=== PATIENT | male | born 1960 | race Caucasian/White ===

== ENCOUNTER 2023-02-05 07:02 | Observation (INO) ==
--- NOTE | 2022-12-07 13:29 | History & Physical Report ---
Date of Service December 07, 2022 Assessment & Plan (1) Osteoarthritis of left hip: We will proceed with a left total hip arthroplasty. Postoperatively he will be started on aspirin for DVT prophylaxis. We will keep him overnight for postop medical management and discharge him to home the following day. History of Present Illness Chief Complaint: Osteoarthritis of the left hip. Primary Care Provider: GILMAR Pj Nieto is a 62-year-old inmate at [facility]. He has been having over a year history of increasing pain in his left hip with decreased range of motion. It is at the point now where he has a very difficult time getting up from a seated position. Difficult time walking without severe pain as well. He has tried conservative treatment up to this point including cortisone injections, which provide him minimal symptomatic relief. Symptoms start in the groin and radiate into his buttock area. X-rays and clinical examination been diagnostic for advanced osteoarthritis of the left hip. After failing conservative treatment, he has elected proceed with a left total hip arthroplasty.. Allergies Allergy/AdvReac Type Severity Reaction Status Date / Time enalaprilat [From Vasotec] Allergy Unknown Verified 12/01/22 10:45 milk Allergy Unknown Verified 12/01/22 10:44 tomato Allergy Unknown Verified 12/01/22 10:44 Home Medications Medication Instructions Recorded Confirmed Type aspirin 81 mg tablet,delayed 81 mg PO DAILY 12/01/22 12/01/22 History release cyproheptadine 4 mg tablet 4 mg PO BID 12/01/22 12/01/22 History famotidine 20 mg tablet 20 mg PO BID 12/01/22 12/01/22 History meloxicam 15 mg tablet 15 mg PO DAILY 12/01/22 12/01/22 History minoxidil 10 mg tablet 10 mg PO TID 12/01/22 12/01/22 History Past Med/Surg History Medical History Environmental allergies GERD (gastroesophageal reflux disease) Hypertension Osteoarthritis of left hip Surgical History No history of previous surgery none reported on [facility] record Social History Smoking Status: Unknown if ever smoked Tobacco Cessation Education Requested by Patient: No Preferred Language: Japanese 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 Physical Exam On physical examination of left hip, he has decreased range of motion. He has pain with forced internal and external rotation. Constitutional WD/WN, vitals as above Eyes PERRL, conjunctivae normal, anicteric sclerae ENMT external ear and nose normal, oropharynx normal Neck trachea midline, no thyromegaly Respiratory normal respiratory effort, lungs clear to auscultation Cardiovascular RRR, no murmur, no edema Gastrointestinal (Abdomen) normal bowel sounds, soft, nontender, no hepatosplenomegaly Skin no rashes, warm and dry Psychiatric A+Ox3, euthymic affect Results & Data Results & Data Laboratory Results . Diagnostic Findings X-rays of the left hip show advanced osteoarthritis with joint space narrowing, osteophyte formation, and [id number] to collation.. PG Care Time/CCT Total # of Minutes Spent Total Time Spent with Patient: Total time spent is greater than 50% in coordination of care (as documented) at patient's floor/unit and/or counseling patient: Coding Level of Care Code None Diagnoses Osteoarthritis of left hip M16.12
--- NOTE | 2023-01-29 15:17 | Anesthesiology Consultation ---
Date of Service January 29, 2023 Assessment & Plan (1) Encounter for pre-operative examination: Chart Review Chart Review: Acceptable Risk for Surgery (pending surgeon ordered preop testing/labs ) and Patient NOT seen in Pre Admission Testing - Awaiting preop testing/labs - Patient will need preop EKG (unconfirmed) reviewed along with functional status and if patient is having any cardiac symptoms- final determination to proceed with surgery will be made at that time Upon review of chart and discussion with Dr. Fletcher- patient is an acceptable candidate for [facility] from anesthesia perspective. Pending patient is motivated, has good support and surgeon's office completes [facility] preop requirements- patient may proceed with outpatient [facility]. Per OR booking comment- [facility] aware and okay with patient coming back to facility same day -COVID screening: Per PAT nursing assessment on 01/25/23. Pt resides at [facility]. No known COVID-19 positive contacts or current COVID-19 related symptoms. Travel screen negative. Unknown if patient if vaccinated for Covid. Preop Covid testing scheduled 02/02/23= awaiting results History Surgery Operation Date: 02/05/23 11:10 Proposed Procedures p Left Total Hip Arthroplasty Anterior - Anthony Bourne, Height/Weight Height: 5 ft 10 in Weight: 101.605 kg Allergies Allergy/AdvReac Type Severity Reaction Status Date / Time enalaprilat [From Vasotec] Allergy Unknown Verified 01/25/23 13:21 milk Allergy Unknown Verified 01/25/23 13:21 tomato Allergy Unknown Verified 01/25/23 13:21 Medications Home Medications Medication Instructions Recorded Confirmed Last Taken aspirin 81 mg tablet,delayed 81 mg PO DAILY 12/01/22 01/25/23 Unknown release famotidine 20 mg tablet 20 mg PO BID 12/01/22 01/25/23 Unknown meloxicam 15 mg tablet 15 mg PO DAILY 12/01/22 01/25/23 Unknown minoxidil 10 mg tablet 10 mg PO TID 12/01/22 01/25/23 Unknown Past Medical History Medical History Atopic dermatitis Chronic low back pain Chronic sinusitis Environmental allergies GERD (gastroesophageal reflux disease) Hypertension Inmate in correction[facility] facility [facility] Osteoarthritis of left hip Past Surgical History Surgical History No history of previous surgery none reported on [facility] record Social History Smoking Status: Unknown if ever smoked Testing Electrocardiogram Date: 10/06/22 Findings: + NSR @ (76bpm ) Possible left atrial enlargement RBBB T wave abnormality, consider inferior ischemia unconfirmed (Discussed with Dr. Fletcher- patient in severe pain per ortho note. Patient resides as inmate- functional status unknown- will be evaluated DOS along with evaluation of cardiac symptoms- can proceed as scheduled at this time but will be reassessed DOS prior to final decision to proceed with surgery; cardiac risk factors include HTN; surgeon's office was informed) Chest X-Ray Date: 09/12/22 Findings: + NAD
--- NOTE | 2023-02-01 17:21 | History & Physical Report ---
Date of Service February 01, 2023 Assessment & Plan (1) Osteoarthritis of left hip: We will proceed with a left anterior total of arthroplasty. Postoperatively he will be kept overnight in the hospital for postop medical management. He will return to custodial in [place] upon discharge. History of Present Illness Chief Complaint: Osteoarthritis of the left hip. Primary Care Provider: GILMAR Nieto is a 62-year-old inmate at [facility]. He has been having over a year history of increasing pain in his left hip with decreased range of motion. It is at the point now where he has a very difficult time getting up from a seated position. Difficult time walking without severe pain as well. He has tried conservative treatment up to this point including cortisone injections, which provide him minimal symptomatic relief. Symptoms start in the groin and radiate into his buttock area. X-rays show advanced osteoarthritis of the left hip. After failing conservative treatment, he has elected proceed with a left anterior total hip arthroplasty.. Allergies Allergy/AdvReac Type Severity Reaction Status Date / Time enalaprilat [From Vasotec] Allergy Unknown Verified 01/25/23 13:21 milk Allergy Unknown Verified 01/25/23 13:21 tomato Allergy Unknown Verified 01/25/23 13:21 Home Medications Medication Instructions Recorded Confirmed Type aspirin 81 mg tablet,delayed 81 mg PO DAILY 12/01/22 01/25/23 History release famotidine 20 mg tablet 20 mg PO BID 12/01/22 01/25/23 History meloxicam 15 mg tablet 15 mg PO DAILY 12/01/22 01/25/23 History minoxidil 10 mg tablet 10 mg PO TID 12/01/22 01/25/23 History Past Med/Surg History Medical History Atopic dermatitis Chronic low back pain Chronic sinusitis Environmental allergies GERD (gastroesophageal reflux disease) Hypertension Inmate in correctional facility GILMAR [place] Osteoarthritis of left hip Surgical History No history of previous surgery none reported on [facility] record Social History Smoking Status: Unknown if ever smoked Tobacco Cessation Education Requested by Patient: No Preferred Language: Cuban 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 Physical Exam On physical examination of the left hip, he has decreased range of motion. He has pain with forced internal and external rotation.. Constitutional WD/WN, vitals as above Eyes PERRL, conjunctivae normal, anicteric sclerae ENMT external ear and nose normal, oropharynx normal Neck trachea midline, no thyromegaly Respiratory normal respiratory effort, lungs clear to auscultation Cardiovascular RRR, no murmur, no edema Gastrointestinal (Abdomen) normal bowel sounds, soft, nontender, no hepatosplenomegaly Skin no rashes, warm and dry Psychiatric A+Ox3, euthymic affect Results & Data Results & Data Laboratory Results . Diagnostic Findings X-rays of the left hip show advanced osteoarthritis with joint space narrowing, osteophyte formation, and [id number] articulation PG Care Time/CCT Total # of Minutes Spent Total Time Spent with Patient: Total time spent is greater than 50% in coordination of care (as documented) at patient's floor/unit and/or counseling patient: Coding Level of Care Code None Diagnoses Osteoarthritis of left hip M16.12
[~2023-02-05 07:02] MED LIST: ACETAMINOPHEN 500 MG TAB PO SCH; FAMOTIDINE 20 MG TAB PO SCH; GABAPENTIN 300 MG CAP PO SCH; LR 500ML BOLUS, THEN 15ML/HR IV SCH; LR 60ML/HR IV SCH; ORTHO JOINT MIX INFIL SCH; ROPIVACAINE 0.5% 5 MG/ML 30 ML VIAL ONE; TRANEXAMIC ACID 1,000 MG **IV Intra-op IV SCH; TRANEXAMIC ACID 1,000 MG **IV Pre-op IV SCH; ceFAZolin 2000MG 2,000 MG/15 ML SYR IV SCH; dexAMETHasone 4 MG TAB PO SCH
[2023-02-05] MEDS ORDERED: MEPIVACAINE HCL 1.5% 30 ML VIAL ONE (07:09)
--- NOTE | 2023-02-05 08:46 | History & Physical Bridge Note ---
Date of Service February 05, 2023 History & Physical Bridge Note I have examined the patient, reviewed the History & Physical and in the interval since the performance of the History & Physical I have noted the following changes of clinical significance: no changes noted
[2023-02-05] MEDS ORDERED: BUPIVACAINE 0.5 % 5 MG/1 ML PF 10ML VIAL ONE (09:06)
[2023-02-05] MEDS ORDERED: ORTHO JOINT ANESTHETIC ONE (09:11)
[2023-02-05] MEDS ORDERED: LIDOCAINE 2% 2 ML VIAL/AMP(20MG/ML) INFIL ONE (09:18)
[2023-02-05] MEDS ORDERED: PROPOFOL IV EMULSION 10 MG/ML 20 ML VIAL IV ONE (09:18)
[2023-02-05] MEDS ORDERED: fentaNYL citrate PF 100 MCG/2 ML VIAL ONE (09:19)
[2023-02-05] MEDS ORDERED: MIDAZOLAM HCL 1 MG/ML 2ML VIAL ONE (09:19)
[2023-02-05] MEDS ORDERED: ATROPINE SULFATE 0.1 MG/ML 10ML SYR IV PRN (09:34)
[2023-02-05] MEDS ORDERED: fentaNYL citrate PF 100 MCG/2 ML VIAL IV PRN (09:34)
[2023-02-05] MEDS ORDERED: ePHEDrine sulfate 50 MG/ML AMP IV PRN (09:34)
[2023-02-05] MEDS ORDERED: ONDANSETRON INJ 2 MG/ML 2 ML VIAL IV PRN ×2 (09:34→12:56)
--- NOTE | 2023-02-05 11:12 | Operative Report ---
PG Post Operative Report Pre & Post Diagnosis Operation Date: 02/05/23 09:10 Pre-Op Diagnosis: Osteoarthritis left hip Post-Op Diagnosis: Osteoarthritis left hip I identified the patient and participated in the time-out.: Yes Procedure Operation Date: 02/05/23 09:10 Actual Procedures p Left Anterior Total Hip Arthroplasty (Left) - Anthony Bourne DO Surgeon Anthony Bourne DO Car Repairer Helper Anthony Grimm PA-C Estimated Blood Loss 200 Findings Consistent with Post-Op Diagnosis Specimens Left femoral head Description of Procedure Implants used I used a ZimmerBiomet total hip arthroplasty system with a size 4 high offset Avenir Complete stem, a 52 mm G7 cup with a 25mm screw, an E1 polyethylene liner, a 36 mm ceramic head with a +7 neck. Gerson arrived at the hospital for the above procedure. He was seen in the preoperative holding area and the operative extremity was identified and signed. He was given a spinal anesthetic, a preoperative antibiotic, and TXA. He was then taken back to the operating room and laid on the table in the supine position. He was given basic sedation. The operative leg was secured to a Puristst leg positioner. The hip was then prepped and draped in sterile fashion. A timeout was done and the patient and the operative extremity was properly identified. An anterior approach was used. Dissection was taken down through the fascia and the tensor muscle belly was retracted laterally and the rectus was retracted medially. The circumflex vessels were identified and ligated. The capsule was then incised and tagged for later repair. The femoral neck was then cut and the femoral head was removed. The acetabulum was exposed. Time was spent doing a complete circumferential labral release. Sequential reaming of the acetabulum up to a size 51 reamer was done. Final reamings were done under fluoroscopy to ensure appropriate version. A Biomet 52 mm G7 cup was then impacted into place. A single 25 mm screw was placed. The E1 polyethylene liner was then snapped into place. Surrounding soft tissues were then injected with 100 cc of an orthopedic pain control cocktail. The proximal femur was then exposed. Sequential broaching up to a size 4 broach was done. Off that broach a size 36 head with a +7 neck was trialed. The hip was reduced and fluoroscopic images showed anatomic alignment of the implants in acceptable length. The broach was removed. The final size 4 high offset Avenir Complete stem was then impacted into place. A ceramic 36 mm head with a +7 neck was then impacted onto the stem and the hip was reduced. Final fluoroscopic images showed anatomic alignment of the hip. The capsule was then closed with #1 Vicryl suture. A dilute betadyne lavage was then done for 3 minutes. The joint was then irrigated with normal saline solution. The fascia was closed with #1 PDS suture. Skin was closed with 2-0 Vicryl, vita, and a Silverlon dressi ng. He was then transferred to a hospital bed and taken to the post anesthesia care unit in stable condition. He tolerated the procedure well. Anthony Grimm PA-C, was present for the entire procedure. He was critical for patient positioning, prepping, draping, retraction exposure, wound closure and application of sterile dressing. I attest to the content of the Intraoperative Record and any orders documented therein. Any exceptions are noted below.
[2023-02-05] MEDS ORDERED: ONDANSETRON INJ 2 MG/ML 2 ML VIAL ONE (11:26)
--- NOTE | 2023-02-05 11:36 | Fluoroscopy Report ---
FL hip LT 1V CLINICAL HISTORY: Left anterior hip replacement. COMPARISON STUDY: None. FLUOROSCOPY TIME: 19 seconds FLUOROSCOPY IMAGES: 1 Ka,r: 2.4 mGy FINDINGS: There is a left total hip arthroplasty. The hardware appears intact. No fracture or disloca tion. IMPRESSION: Fluoroscopic assistance as above. ACT 112: Negative or not required by law. Electronically signed by: Mack Gordon M.D. 02/05/2023 11:34 AM
--- NOTE | 2023-02-05 12:02 | Anesthesiology Progress Note ---
Date of Service February 05, 2023 Anesthesia Post Procedure Vital Signs Vital Signs: Temp Pulse Pulse Resp BP BP Pulse Ox 02/05/23 11:45 82 18 160/70 H 95 02/05/23 11:35 36.3 C L 70 20 109/63 96 02/05/23 07:29 37 C 79 20 176/83 H 99 O2 Del Method O2 Flow Rate 02/05/23 11:45 Room Air 02/05/23 11:35 Oxymask 6 02/05/23 07:29 Pain Intensity Left Hip: Pain Intensity: 4 Transfer of Care Handoff Completed per policy Notes Mental Status: alert / awake / arousable and participated in evaluation Nausea / Vomiting: adequately controlled Pain: adequately controlled Airway Patency, RR, SpO2: stable & adequate BP & HR: stable & adequate Hydration State: stable & adequate Neuraxial Anesthesia: was administered and sensory block is resolving Anesthetic Complications: no major complications apparent and Pt Satisfied with anesthetic care
--- NOTE | 2023-02-05 12:41 | XRay Report ---
XR hip 1V LT w pelvis CLINICAL HISTORY: IN PACU - Post Surgical TECHNIQUE: 2 views of the left hip and single frontal view of the pelvis were obtained. Comparison: Comparison is made to hip radiograph 09/05/2022 FINDINGS: Patient is status post total hip arthroplasty with expected postsurgical changes including soft tissu e swelling and subcutaneous emphysema. IMPRESSION: Expected postoperative appearance status post placement of total hip arthroplasty. ACT 112: Negative or not required by law. Electronically signed by: Davey Sotelo M.D. 02/05/2023 12:39 PM
[2023-02-05] MEDS ORDERED: bisacodyL 10 MG SUPP PR PRN (12:56)
[2023-02-05] MEDS ORDERED: METOCLOPRAMIDE HCL INJ 5 MG/ML 2 ML VIAL IV PRN (12:56)
[2023-02-05] MEDS ORDERED: MAGNESIUM HYDROXIDE SUSP 30 ML UDC PO PRN (12:56)
[2023-02-05] MEDS ORDERED: oxyCODONE HCL IR 5 MG TAB (IMMEDIATE RELEASE) PO PRN (12:56)
[2023-02-05] MEDS ORDERED: NALOXONE HCL 0.4 MG/1 ML VIAL/CARP IV PRN (12:56)
[2023-02-05] MEDS ORDERED: HYDROmorphone INJ 0.5 MG/0.5 ML SYR IV PRN (12:56)
[2023-02-05] MEDS: SODIUM CHLORIDE 0.9% 1000ML 1,000 ML IV SCH (14:14)
[2023-02-05] MEDS: ACETAMINOPHEN 500 MG TAB PO SCH ×2 (14:14→22:31)
[2023-02-05] MEDS: KETOROLAC 30 MG/ML VIAL IV SCH ×2 (14:15→18:17)
[2023-02-05] MEDS: minoxidiL 2.5 MG TAB PO SCH ×2 (16:56→20:05)
[2023-02-05] MEDS: ceFAZolin 2000MG 2,000 MG/15 ML SYR IV SCH (18:17)
[2023-02-05] MEDS: DOCUSATE SODIUM 100 MG CAP PO SCH (20:04)
[2023-02-05] MEDS: ASPIRIN 81 MG ECTAB PO SCH (20:04)
[2023-02-05] MEDS: FAMOTIDINE 20 MG TAB PO SCH (20:04)
[2023-02-05] MEDS ORDERED: SENNA 8.6 MG TAB PO SCH (21:00)
[2023-02-06] MEDS: KETOROLAC 30 MG/ML VIAL IV SCH ×2 (00:28→06:12)
[2023-02-06] MEDS: SODIUM CHLORIDE 0.9% 1000ML 1,000 ML IV SCH (00:52)
[2023-02-06] MEDS: ceFAZolin 2000MG 2,000 MG/15 ML SYR IV SCH (02:18)
[2023-02-06] MEDS: ACETAMINOPHEN 500 MG TAB PO SCH (05:24)
[2023-02-06] MEDS: DOCUSATE SODIUM 100 MG CAP PO SCH (07:50)
[2023-02-06] MEDS: ASPIRIN 81 MG ECTAB PO SCH (07:51)
[2023-02-06] MEDS: FAMOTIDINE 20 MG TAB PO SCH (07:51)
[2023-02-06] MEDS: minoxidiL 2.5 MG TAB PO SCH (07:55)
[2023-02-06] MEDS ORDERED: dexAMETHasone 4 MG TAB PO SCH (08:00)
--- NOTE | 2023-02-06 08:26 | Orthopedic Progress Note ---
Date of Service February 06, 2023 Assessment & Plan (1) Status post left hip replacement: Overall he is doing very well. He is not having much pain in the left hip. He will be seen by physical therapy today for ambulation and range of motion exercises. He is on aspirin for DVT prophylaxis. He can be [facility] to [facility] today. He will follow-up with orthopedics in 2 weeks. Raúl Nieto was seen and examined at bedside this morning. Overall is doing well. Is not having much pain in the left hip. He has been up and ambulating to the bathroom. He has no complaints.. Review of Systems All systems reviewed & are unremarkable except as noted in HPI & below. Physical Exam On physical examination of the left hip, the dressing is clean and dry. His leg is out full extension. He has active dorsiflexion plantarflexion of his left ankle.. Results & Data Results & Data Laboratory Results . Diagnostic Findings Postoperative x-rays of the left hip show the prosthesis to be in anatomic alignment without any evidence of fracture complication, or loosening.. PG Care Time/CCT Total # of Minutes Spent Total Time Spent with Patient: Total time spent is greater than 50% in coordination of care (as documented) at patient's floor/unit and/or counseling patient: Coding Level of Care Code 43848 Post Operative Follow-Up Diagnoses Status post left hip replacement Z96.642
--- NOTE | 2023-02-06 08:28 | Discharge Summary ---
Date of Service February 06, 2023 Admission HPI (Per Admitting) Gerson is a 62-year-old inmate at [facility]. He has been having over a year history of increasing pain in his left hip with decreased range of motion. It is at the point now where he has a very difficult time getting up from a seated position. Difficult time walking without severe pain as well. He has tried conservative treatment up to this point including cortisone injections, which provide him minimal symptomatic relief. Symptoms start in the groin and radiate into his buttock area. X-rays show advanced osteoarthritis of the left hip. After failing conservative treatment, he has elected proceed with a left anterior total hip arthroplasty.. Admission Exam (Per Admitting) On physical examination of the left hip, he has decreased range of motion. He has pain with forced internal and external rotation.. Principal Diagnosis Same as "Discharge Diagnosis" noted below under Discharge Instructions. Discharge Exam On physical examination of the left hip, the dressing is clean and dry. His leg is out full extension. He has active dorsiflexion plantarflexion of his left ankle.. Discharge Data Procedures Performed Operation Date: 02/05/23 09:10 Actual Procedures p Left Anterior Total Hip Arthroplasty (Left) - Anthony Bourne DO Ordered Studies 02/05/23 09:10 FL hip LT 1V Routine Hospital Course (1) Status post left hip replacement: On February 05, 2023 Gerson arrived at [facility] and underwent a left hip replaced without complication. He had a spinal anesthetic. Postoperatively he was started on aspirin for DVT prophylaxis and transferred to the general orthopedic floors. His hospital course was uneventful. On postop day #1, his vital signs were stable and his pain was well controlled. He is able to participate well with physical therapy doing ambulation and range of motion exercises. He was then discharged home. He will follow-up with orthopedics in 2 weeks. PG Care Time/CCT Total # of Minutes Spent Total Time Spent with Patient: Total time spent is greater than 50% in coordination of care (as documented) at patient's floor/unit and/or counseling patient: Discharge Plan Discharge Items Patient Disposition: Home - Home Health Services Reason For Visit: Left Hip Degenerative Joint Disease Discharge Diagnosis: Left hip replacement Activity: Per Instructions section Non-emergency contact: Surgeon Call non-emergency contact if: your wound has increased redness and your wound has increased drainage Follow-up/Referrals: Pj SCHAFER [Primary Care Provider] - Diet: Regular Addtl Attending Provider Instructions: Activity and Therapy Recommendations: * If you are using [facility] then therapy will be provided at your home until they feel you have accomplished all of your goals. * If you are using [facility] then Physical Therapy will be provided until they feel you are ready to start Outpatient Physical Therapy. * If you are not using home therapy then Outpatient Physical Therapy should start about 3-5 days from your day of surgery. Therapy will last about 6-10 weeks * You were shown a series of exercises in the hospital. Do these exercises three times each day including the exercises you were shown in physical therapy. * Get up and walk several times each day.~ For the first four weeks, try not to stand or walk for more than one hour at a time. If you do stand or walk for more than one hour, you will not hurt anything, but your leg will likely swell.~~ * As you feel comfortable, you may change from the walker or crutches to a cane and~then to independent walking. Medications: * Narcotic You will likely be sent home from the hospital with a prescription for the narcotic pain medication that worked best throughout your stay. * Aspirin Most patients will be required to take Aspirin 81mg twice a day for 6 weeks after surgery. This is obtained [id number] and a prescription is not necessary. * Other medications may be prescribed for specific circumstances. If you have any questions, please call the office at . * Resume previous home medications unless otherwise instructed TEDs/Elastic Stockings: The white elastic stockings help limit swelling and prevent blood clots from forming in your legs. The more you wear them, the more they work. Wear them for six weeks. Dressing Care: Leave the Silverlon dressing in place for 7 days. After 7 days you may remove the dressing. If the incision is not draining then you may leave the vita open to air. If there is a little bit of drainage or if the vita are getting stuck on your clothing then cover the incision with a dry dressing. The vita will be removed at your 2 week follow-up appointment. Showering: You may shower with the Silverlon dressing in place. Do not let the shower s pray hit the dressing directly. Pat the Silverlon dressing dry. If the dressing becomes wet underneath, then simply remove the dressing. Keep the incision dry until you are 7 days out from the day of surgery. After 7 days you may remove the Silverlon dressing and shower with the vita exposed. Let soapy water run over the vita and pat them dry. Do not scrub or soak the incision. Things To Watch For: * Drainage from the incision site that occurs more than one week after your surgery. * Increased redness at the incision site. * Fever above 102 degrees Fahrenheit. * Unusual chest pain or shortness of breath. * Call [facility] at with any of the above problems Follow-Up Visit: Follow-up with Dr. Bourne's PA (Anthony Grimm) 2-3 weeks after your day of surgery. He will remove your vita and answer any questions. If you have any additional questions or concerns, Dr Bourne is usually in the o ffice at the same time and will be available An appointment was probably scheduled when you signed-up for surgery in the office. If you have any questions call Office Instructions: More detailed instructions as well as Frequently Asked Questions were provided in a folder by our office when you signed-up for surgery. Please review these instructions when you get home. If you have any further questions or concerns, please feel free to call the office at [phone] Pending Studies at Discharge: No Stand-Alone Forms: My [facility], Smoking Cessation Medications and DC Order Prescriptions: New aspirin 81 mg Tablet,Delayed Release (Dr/Ec) 81 mg PO BID 42 Days Qty: 0 0RF oxycodone 5 mg Tablet 5 mg PO Q4H PRNQty: 0 0RF Continued meloxicam 15 mg Tablet 15 mg PO DAILY aspirin [Aspir-81] 81 mg Tablet,Delayed Release (Dr/Ec) 81 mg PO DAILY famotidine 20 mg Tablet 20 mg PO BID minoxidil 10 mg Tablet 10 mg PO TID Admission Data Admit Date/Time: 02/05/23 11:37 Attending Provider: Anthony Bourne Admit Provider: Anthony Bourne Primary Care Provider: Pj SCHAFER
[2023-02-06] MEDS ORDERED: MULTIVITAMIN TAB PO SCH (09:00)
== END 2023-02-06 12:07 | disposition home health service (06) ==
LOC: ASU 07:02 → 3E 07:02